=== PATIENT | female | born 1995 | race Caucasian/White ===

== ENCOUNTER 2017-01-02 16:04 | Emergency (ER) | payer MEDICAID ==
[2017-01-02] MEDS ORDERED: NORMAL SALINE 1,000 ML IV ONE (17:24)
[2017-01-02] MEDS ORDERED: KETOROLAC TROMETHAMINE 30 MG/ML VIAL IV ONE (17:24)
[2017-01-02] MEDS ORDERED: diphenhydrAMINE HCL 50 MG/ML VIAL IV ONE ×2 (17:24→19:11)
[2017-01-02] MEDS ORDERED: PROMETHAZINE HCL 25 MG in DEXTROSE 5 % IN WATER 50 ML IV ONE ×2 (17:24)
--- NOTE | 2017-01-02 17:29 | ERNOTE ---
Headache ER HPI - Narrative Date of Service: 01/02/17 - General Presenting Symptoms: "migraine" Time Seen by Provider: 01/02/17 17:03 Source: patient Exam Limitations: no limitations - Immun/Allergies/Home Medications Immunizations: IMMUNIZATION HX Immunizations Up to Date Yes Allergies/Adverse Reactions: Allergies No Known Allergies Allergy (Unverified 01/02/17 16:31) Home Medications: HOME MEDICATIONS Ondansetron [Zofran Odt] 4 mg PO Q6H PRN #20 tab 01/02/17 [Last Taken Unknown] - History of Present Illness Narrative: Pt. comes in with c/o headache with nausea and vomiting for three weeks. Pt. recently moved from [place] and has a hx of gastroparesis which is being treated with monitoring as she has an allergic reaction to reglan. Pt. denies that this is the worst headache ever, any fever or recent illness, double vision , SOB, CP, alleviating factors, aggravating factors or prehospital treatment. Review of Systems - Review of Systems Constitutional: Present: no symptoms reported. Absent: recent illness, fever, chills, weakness, fatigue, malaise EYE: Present: no symptoms reported ENT: Present: no symptoms reported Respiratory: Present: no symptoms reported. Absent: shortness of breath, cough , wheezing Cardiology: Present: no symptoms reported. Absent: chest pain, palpitations, edema Gastrointestinal/Abdominal: Present: nausea, vomiting. Absent: diarrhea, abdominal pain Genitourinary: Present: no symptoms reported. Absent: frequency, decreased urinary output Musculoskeletal: Present: no symptoms reported. Absent: back pain, joint pain Skin: Present: no symptoms reported. Absent: rash, change in color, change in hair/nails Neurological: Present: no symptoms reported, headache. Absent: dizziness/light- headedness, numbness, tingling All Other Systems: All systems neg except as marked - Patient's Past Medical History Patient History - Medical: Other Patient History - Cardiac/Respiratory: No pertinent hx Patient History - Cancer: No Hx of Cancer Patient History - Surgical Procedures: No surgical history - Social History Smoking Status: Current every day smoker Have you smoked in the past 12 months: Yes - Immunizations Immunizations Up to Date: Yes Physical Exam - Physical Exam General Appearance: Present: wd/wn, alert, no apparent distress Eye Exam: Normal inspection: bilateral, PERRL: bilateral, EOMI: bilateral Ears, Nose, Throat: Present: normal ENT inspection, normal pharynx Neck: Present: normal inspection, nontender. Absent: lymphadenopathy (R), lymphadenopathy (L) Respiratory: Present: no respiratory distress, normal breath sounds, no accessory muscle use, chest nontender, lungs clear Cardiovascular/Chest: Present: regular rate, rhythm, no murmur, normal peripheral pulses Gastrointestinal/Abdominal: Present: normal bowel sounds, nontender, nondistended, soft, no organomegaly Back Exam: Present: normal inspection, normal range of motion, no CVA tenderness , no vertebral tenderness Extremity Exam: Present: normal inspection, non-tender, normal range of motion, no edema Neurological Exam: Present: alert, oriented, normal mood/affect, no motor/ sensory deficits Skin Exam: Present: normal color, warm/dry. Absent: pallor, skin rash ED Progress - Results and Orders Patient's Lab Results:: I have reviewed the patient's lab results. - Vital Signs Patient's Vital Signs:: I have reviewed the patient's vital signs. Vital Signs: Vital Signs 01/02/17 16:29 Temperature 37.1 C Pulse Rate 92 Respiratory 12 Rate Blood Pressure 121/74 O2 Sat by Pulse 98 Oximetry - Progress/Reassessment Chief Complaint: Headache Progress:: Improved Departure Clinical Impression: Dehydration, mild, Gastroparesis Migraine Qualifiers: Migraine type: without aura Status migrainosus presence: without status migrainosus Intractability: not intractable Qualified Code(s): G43.009 - Migraine without aura, not intractable, without status migrainosus - Departure Disposition: Home self-care Condition: Good Instructions: Recurrent Migraine Headache, Gastroparesis, Low-Fiber Diet, Dehydration, Adult, [id number] Additional Instructions: Please follow up with primary provider of your choice to further investigate gastroparesis. Take zofran as needed for nausea and increase fluid intake. Prescriptions: Ondansetron [Zofran Odt] 4 mg PO Q6H PRN #20 tab PRN Reason: Nausea
[2017-01-02] MEDS ORDERED: diphenhydrAMINE HCL 50 MG/ML VIAL ONE (17:35)
[2017-01-02] MEDS ORDERED: KETOROLAC TROMETHAMINE 30 MG/ML VIAL ONE (17:35)
[2017-01-02 17:50] LABS: Hematocrit 41.6 % (37.0-47.0); Hemoglobin 14.3 gm/dL (12.5-16.0); Mean Cell Volume 92.9 fl (78-100); Mean Corpuscular Hemoglobin 31.9 pg (27-31); Mean Corpuscular Hgb Conc 34.4 g/dl (32-36); Neutrophil # 7.5 K/mm3 (1.3-6.0); Neutrophil % 76.8 % (42-75.0); Platelet Count 267 K/mm3 (150-450); Red Blood Count 4.48 M/mm3 (4.2-5.4); Red Cell Distribution Width 13.3 % (11.5-14.0); White Blood Count 9.8 K/mm3 (4.0-10.5)
[2017-01-02 18:07] LABS: Albumin * 4.3 gm/dl (3.4-5.0); BUN/Creatinine Ratio 14.5 (9.0-21.6); Bilirubin, Total 0.6 mg/dL (0.0-1.1); Ca. Corrected For Albumin 8.8 mg/dL (8.4-10.2); Calcium * 9.4 mg/dL (7.9-10.9); Potassium 3.9 mmol/L (3.4-4.6); TSH * 1.422 uIU/mL (0.358-3.74); Total Protein 8.2 gm/dL (6.2-8.2)
[2017-01-02 18:22] LABS: Anion Gap 14.3 mmol/L (6.8-13.8); Carbon Dioxide 26.6 mmol/L (24-32.6)
[2017-01-02 18:51] LABS: Urine Bilirubin Negative (NEGATIVE); Urine Blood Negative /ul (NEGATIVE); Urine Ketone 15 mg/dL (NEGATIVE); Urine Nitrite Negative (NEGATIVE); Urine Protein Negative (NEGATIVE); Urine Urobilinogen Normal (NORMAL)
[2017-01-02 19:10] LABS: Urine Appearance Clear; Urine Color Yellow
[2017-01-02 19:11] LABS: Urine Amorphous Sediment Few - 1+ (NONE-FEW); Urine Bacteria 1+; Urine Mucus Few - 1+; Urine RBC None Seen /hpf (0-5); Urine WBC None Seen /hpf (0-5)
[2017-01-02 19:51] VITALS: BP 126/71
== END 2017-01-02 20:19 | disposition home or self-care (01) ==
LOC: ER 16:04
DX: E86.0 Dehydration (principal); G43.009 Migraine without aura, not intractable, without status migrainosus; K31.84 Gastroparesis; F17.210 Nicotine dependence, cigarettes, uncomplicated